=== PATIENT | male | born 1970 | race Caucasian/White ===

== ENCOUNTER 2016-11-29 14:31 | Inpatient (IN) | payer OTHER ==
[2016-11-29 16:10] VITALS: BMI 19.0
[2016-11-29] MEDS ORDERED: MAGNESIUM CITRATE 300 ML BOTTLE PO PRN (16:27)
[2016-11-29] MEDS ORDERED: NICOTINE POLACRILEX 2 MG GUM BC PRN (16:27)
[2016-11-29] MEDS ORDERED: MENTHOL/PHENOL 1 EACH UD MM PRN (16:27)
[2016-11-29] MEDS ORDERED: MAG HYDROX/AL HYDROX/SIMETH 30 ML UNIT-DOSE CUP PO PRN (16:27)
[2016-11-29] MEDS ORDERED: guaiFENesin/D-METHORPHAN HB 10 ML UNIT-DOSE CUPS PO PRN (16:27)
[2016-11-29] MEDS ORDERED: IBUPROFEN 400 MG TABLET (FP) PO PRN (16:27)
[2016-11-29] MEDS ORDERED: LOPERAMIDE HCL 2 MG CAPSULE PO PRN (16:27)
[2016-11-29] MEDS ORDERED: P-EPHED 60MG/TRIPROLIDI 2.5MG TABLET PO PRN (16:27)
[2016-11-29] MEDS ORDERED: ACETAMINOPHEN 325 MG TABLET (FP) PO PRN (16:27)
[2016-11-29] MEDS ORDERED: MAGNESIUM HYDROX 2400MG/30ML ORAL SUSPENSION 30 ML CUP PO PRN (16:27)
--- NOTE | 2016-11-29 16:46 | HP ---
Admission [facility] Chief Complaint: I need rehab to stop using drugs and continue OTP Allergies/Adverse Reactions: Allergies Allergy/AdvReac Type Severity Reaction Status Date / Time No Known Allergies Allergy Verified 11/29/16 16:27 History of Present Illness: 46 y/o man with a long hx. of drug dependence is admitted to rehab. Pt. is currently attending [facility] on methadone 40mg daily. Also attends [facility] for treatment of AIDS with HAART. Exam Limitations: No Limitations - Ebola screening Have you traveled outside of the country in the last 21 days: No Have you had contact with anyone from an Ebola affected area: No Have you been sick,other than usual withdrawal symptoms: No Do you have a fever: No - Review of Systems Constitutional: Diaphoresis EENT: reports: No Symptoms Reported Respiratory: reports: No Symptoms reported Cardiac: reports: No Symptoms Reported GI: reports: No Symptoms Reported : reports: No Symptoms Reported Musculoskeletal: reports: Back Pain, Joint Pain, Muscle Pain Integumentary: reports: No Symptoms Reported Neuro: reports: No Symptoms reported Endocrine: reports: No Symptoms Reported Hematology: reports: No Symptoms Reported Psychiatric: reports: No Sypmtoms Reported Other Systems: Reviewed and Negative Patient History - Patient Medical History Hx Anemia: No Hx Asthma: Yes Hx Chronic Obstructive Pulmonary Disease (COPD): No Hx Cancer: No Hx Cardiac Disorders: No Hx Congestive Heart Failure: No Hx Hypertension: No Hx Hypercholesterolemia: No Hx Pacemaker: No HX Cerebrovascular Accident: No Hx Seizures: No Hx Dementia: No Hx Diabetes: No Hx Gastrointestinal Disorders: No Hx Liver Disease: Yes Hx Genitourinary Disorders: No Hx Sexually Transmitted Disorders: No Hx Renal Disease (ESRD): No Hx Thyroid Disease: No Hx Human Immunodeficiency Virus (HIV): Yes (1994) Hx Hepatitis C: Yes (not yet treated) Hx Depression: Yes (Anxiety) Hx Suicide Attempt: No Hx Bipolar Disorder: No Hx Schizophrenia: No - Patient Surgical History Hx Cataract Extraction: Yes Hx Abdominal Surgery: Yes (rt. inguinal hernia repair) - PPD History Previous Implant?: Yes Documented Results: Negative w/o proof PPD to be Administered?: Yes - Smoking Cessation Smoking history: Current every day smoker Aproximately how many cigarettes per day: 10 Initiated information on smoking cessation: Yes 'Breaking Loose' booklet given: 11/29/16 - Substance & Tx. History Hx Alcohol Use: No Hx Substance Use: Yes Substance Use Type: Cocaine, Heroin, Marijuana Hx Substance Use Treatment: Yes ([facility]) - Substances Abused Cocaine Route: Injection Frequency: Daily Amount used: 1 bag Age of first use: 15 Date of Last Use: 11/28/16 Heroin Route: Injection Frequency: Daily Amount used: 2 bags Age of first use: 14 Date of Last Use: 11/28/16 Marijuana/Hashish Route: Oral Frequency: Daily Amount used: 20mg Date of Last Use: 11/29/16 Family Disease History - Family Disease History Family Disease History: Diabetes: Father, Mother, Brother Admission Physical Exam [facility] - Vital Signs Vital Signs: Vital Signs - 24 hr 11/29/16 16:09 Temperature 97 F L Pulse Rate 50 L Respiratory 20 Rate Blood Pressure 130/75 - Physical General Appearance: Yes: Within Normal Limits HEENTM: Yes: Within Normal Limits Respiratory: Yes: Chest Non-Tender, Wheezing (B/L expiratory) Neck: Yes: Supple Breast: Yes: Breast Exam Deferred Cardiology: Yes: Regular Rhythm, Regular Rate, S1, S2 Abdominal: Yes: Normal Bowel Sounds, Non Tender, Flat, Soft Genitourinary: Yes: Within Normal Limits Back: Yes: Within Normal Limits Musculoskeletal: Yes: Within Normal Limits Extremities: Yes: Within Normal Limits Neurological: Yes: Fully Oriented, Alert Integumentary: Yes: Diaphoresis Lymphatic: Yes: Within Normal Limits - Diagnostic (1) Cannabis dependence, uncomplicated Current Visit: Yes Status: Acute (2) Cocaine dependence, uncomplicated Current Visit: Yes Status: Acute (3) Opioid dependence on agonist therapy Current Visit: Yes Status: Acute (4) Asthma attack Current Visit: Yes Status: Acute Cleared for Admission [facility] - Detox or Rehab Claeared for Rehab Admission: Yes [facility] Breath Alcohol Content Breath Alcohol Content: 0 Urine Drug Screen - Results Drug Screen Negative: No Urine Drug Screen Results: THC-Marijuana, GARY-Cocaine, OPI-Opiates, MTD- Methadone
[2016-11-29] MEDS ORDERED: ALBUTEROL SO4 2.5/IPRATROPIUM 0.5 INH SOL 3 ML VIAL.NEB. NEB PRN (17:11)
[2016-11-29] MEDS ORDERED: ALBUTEROL SO4 6.7 GM HFA INHALER IH PRN (18:07)
[2016-11-29] MEDS ORDERED: predniSONE 20 MG TABLET (UD) PO ONE ×2 (18:30→21:45)
[2016-11-29 21:13] LABS: URINE APPEARANCE CLEAR; URINE BILIRUBIN NEGATIVE (NEGATIVE); URINE BLOOD NEGATIVE (NEGATIVE); URINE COLOR YELLOW; URINE GLUCOSE (UA) NEGATIVE (NEGATIVE); URINE KETONE NEGATIVE (NEGATIVE); URINE LEUK ESTERASE NEGATIVE (NEGATIVE); URINE NITRITE NEGATIVE (NEGATIVE); URINE PROTEIN NEGATIVE (NEGATIVE); URINE UROBILINOGEN 4.0 E.U/dl mg/dL (0.2-1.0)
[2016-11-29] MEDS ORDERED: TUBERCULIN PPD 5 TU/0.1ML VIAL ID ONE (21:20)
[2016-11-29] MEDS: ALBUTEROL SO4 2.5/IPRATROPIUM 0.5 INH SOL 3 ML VIAL.NEB. NEB SCH ×2 (21:21→22:00)
[2016-11-29] MEDS: THIAMINE HCL 100 MG TABLET (FP) PO SCH (21:23)
[2016-11-29] MEDS: SULFAMETHOXAZOLE/TRIMETHOPRIM 800MG/160MG D.S. TABLET PO SCH (21:24)
[2016-11-29] MEDS: NICOTINE 21 MG/24 HOURS TOPICAL PATCH TD SCH (21:26)
[2016-11-30] MEDS: DRONABINOL 2.5 MG CAPSULE PO SCH ×2 (06:36→17:31)
[2016-11-30] MEDS: ATAZANAVIR SO4 300 MG CAPSULE PO SCH (07:03)
[2016-11-30] MEDS: EMTRICITABINE 200MG/TENOFOVIR 300MG PO SCH (07:03)
[2016-11-30] MEDS: RITONAVIR 100 MG TABLET PO SCH (07:04)
[2016-11-30 09:59] LABS: MCH 29.2 pg (25.7-33.7); MCHC 32.8 g/dl (32.0-35.9); MEAN CELL VOLUME 88.8 fl (80-96); MEAN PLT VOLUME 9.9 fl (7.5-11.1); PLATELET COUNT 128 K/MM3 (134-434); RDW 13.2 % (11.9-15.9); WHITE BLOOD COUNT 3.8 K/mm3 (4.0-10.0)
[2016-11-30] MEDS ORDERED: predniSONE 10 MG TABLET (UD) PO ONE (10:00)
[2016-11-30] MEDS: METHADONE HCL 40 MG DISPERSABLE TABLET PO SCH (10:03)
[2016-11-30] MEDS: SULFAMETHOXAZOLE/TRIMETHOPRIM 800MG/160MG D.S. TABLET PO SCH ×2 (10:04→21:18)
[2016-11-30] MEDS: NICOTINE 21 MG/24 HOURS TOPICAL PATCH TD SCH (10:04)
[2016-11-30] MEDS: ALBUTEROL SO4 2.5/IPRATROPIUM 0.5 INH SOL 3 ML VIAL.NEB. NEB SCH ×4 (10:04→22:44)
[2016-11-30] MEDS: PRENATAL VITAMINS W/ FOLIC ACID TABLET (FP) PO SCH (10:04)
[2016-11-30 10:22] LABS: ALBUMIN 3.3 g/dl (3.4-5.0); ALK PHOS 86 U/L (45-117); ANION GAP 3 (8-16); BILIRUBIN,TOTAL 1.1 mg/dL (0.2-1.0); CALCIUM 9.1 mg/dL (8.5-10.1); CO2 31 mmol/L (21-32); CREATININE 0.8 mg/dL (0.7-1.3); GLUCOSE,RANDOM 155 mg/dL (74-106); SGOT/AST 22 U/L (15-37); SGPT/ALT 31 U/L (12-78); TOT PROT 8.3 g/dl (6.4-8.2)
--- NOTE | 2016-11-30 11:18 | HP ---
Psychiatrist Admission - Data Date of interview: 11/30/16 [facility] Identifying data: This is the first 5N inpatient rehabilitation admission for this 46 year old single unmeployed and domiciled male. Medical History: HIV+ since 89, Hep C, Asthma, Cataract Extraction, Rt. Inguinal Hernia Repair. Smokes cigaretets 1/2 PPD, on MMTP 40 mg daily. Psychiatric History: Patient reports history of depression, sees the psychiatrist at his methadone clinic, reports he is on seroquel unknown dose and ambien. No history of psychiatric hospitalizations and no history of suicdal attempts. Physical/Sexual Abuse/Trauma History: Denies history of sexual, physical and verbal abuse. Additional Comment: longest period of abstinence is 2 years. Vital Signs: Vital Signs - 24 hr 11/29/16 11/30/16 11/30/16 16:09 00:30 03:29 Temperature 97 F L Pulse Rate 50 L Respiratory 20 16 16 Rate Blood Pressure 130/75 11/30/16 06:37 Temperature 98.1 F Pulse Rate 59 L Respiratory 18 Rate Blood Pressure 122/71 Allergies/Adverse Reactions: Allergies Allergy/AdvReac Type Severity Reaction Status Date / Time No Known Allergies Allergy Verified 11/29/16 16:27 Date of last physical exam: 11/30/16 Concur with the findings of this exam: Yes - Substance Abuse/Tx History Hx Alcohol Use: No Hx Substance Use: Yes Substance Use Type: Cocaine (started at age of 22, daily use f 1 bag), Heroin ( 1 bag a day) Hx Substance Use Treatment: Yes - Admission Criteria Previous failed treatment: Yes Poor recovery environment: Yes Comorbidities: Yes Lacks judgement: Yes Mental Status Exam - Mental Status Exam Alert and Oriented to: Time, Place, Person Cognitive Function: Good Patient Appearance: Well Groomed Mood: Sad Affect: Appropriate, Mood Congruent Patient Behavior: Appropriate, Cooperative Speech Pattern: Clear, Appropriate Voice Loudness: Normal Thought Process: Intact, Goal Oriented Thought Disorder: Not Present Hallucinations: Denies Suicidal Ideation: Denies Homicidal Ideation: Denies Insight/Judgement: Fair Sleep: Poorly, Difficulty falling asleep Appetite: Weight loss, Weight gain Muscle strength/Tone: Normal Gait/Station: Normal Psychiatric Findings - Problem List ([place] 1, 2,3) (1) Opioid dependence on agonist therapy Current Visit: Yes Status: Acute (2) Cocaine dependence Current Visit: Yes Status: Acute (3) Mood disorder Current Visit: Yes Status: Acute - Initial Treatment Plan Initial Treatment Plan: will continue Seroquel 25 mg po hs, monitor progress as needed.
--- NOTE | 2016-11-30 15:38 | EKG ---
Test Reason : Blood Pressure : / mmHG Vent. Rate : 055 BPM Atrial Rate : 055 BPM P-R Int : 168 ms QRS Dur : 098 ms QT Int : 458 ms P-R-T Axes : 068 052 048 degrees QTc Int : 438 ms SINUS BRADYCARDIA WITH SINUS ARRHYTHMIA INCOMPLETE RIGHT BUNDLE BRANCH BLOCK BORDERLINE ECG NO PREVIOUS ECGS AVAILABLE Confirmed by AISHA ROACH, YOSEF ([id number]) on 11/30/2016 3:37:41 PM Referred By: Tejal Boyer Confirmed By:YOSEF LEONARD MD
[2016-11-30] MEDS: THIAMINE HCL 100 MG TABLET (FP) PO SCH (21:19)
[2016-11-30] MEDS: QUEtiapine FUMARATE 25 MG TABLET (FP) PO SCH (21:19)
[2016-12-01] MEDS: METHADONE HCL 40 MG DISPERSABLE TABLET PO SCH (06:40)
[2016-12-01] MEDS: DRONABINOL 2.5 MG CAPSULE PO SCH ×2 (06:40→16:48)
[2016-12-01] MEDS: ATAZANAVIR SO4 300 MG CAPSULE PO SCH (07:12)
[2016-12-01] MEDS: EMTRICITABINE 200MG/TENOFOVIR 300MG PO SCH (07:13)
[2016-12-01] MEDS: RITONAVIR 100 MG TABLET PO SCH (07:13)
[2016-12-01] MEDS: NICOTINE 21 MG/24 HOURS TOPICAL PATCH TD SCH (09:47)
[2016-12-01] MEDS: ALBUTEROL SO4 2.5/IPRATROPIUM 0.5 INH SOL 3 ML VIAL.NEB. NEB SCH ×4 (09:47→22:13)
[2016-12-01] MEDS: PRENATAL VITAMINS W/ FOLIC ACID TABLET (FP) PO SCH (09:47)
[2016-12-01] MEDS: predniSONE 20 MG TABLET (UD) PO SCH (09:47)
[2016-12-01] MEDS: SULFAMETHOXAZOLE/TRIMETHOPRIM 800MG/160MG D.S. TABLET PO SCH ×2 (09:47→21:25)
[2016-12-01] MEDS: diphenhydrAMINE HCL 50 MG CAPSULE PO PRN (21:25)
[2016-12-01] MEDS: QUEtiapine FUMARATE 25 MG TABLET (FP) PO SCH (21:25)
[2016-12-01] MEDS: THIAMINE HCL 100 MG TABLET (FP) PO SCH (21:25)
[2016-12-02] MEDS: DRONABINOL 2.5 MG CAPSULE PO SCH ×2 (06:21→17:46)
[2016-12-02] MEDS: METHADONE HCL 40 MG DISPERSABLE TABLET PO SCH (06:22)
[2016-12-02] MEDS: EMTRICITABINE 200MG/TENOFOVIR 300MG PO SCH (07:14)
[2016-12-02] MEDS: RITONAVIR 100 MG TABLET PO SCH (07:14)
[2016-12-02] MEDS: ATAZANAVIR SO4 300 MG CAPSULE PO SCH (07:14)
[2016-12-02] MEDS: SULFAMETHOXAZOLE/TRIMETHOPRIM 800MG/160MG D.S. TABLET PO SCH ×2 (09:52→21:28)
[2016-12-02] MEDS: PRENATAL VITAMINS W/ FOLIC ACID TABLET (FP) PO SCH (09:52)
[2016-12-02] MEDS: predniSONE 20 MG TABLET (UD) PO SCH (09:52)
[2016-12-02] MEDS: NICOTINE 21 MG/24 HOURS TOPICAL PATCH TD SCH (09:53)
[2016-12-02] MEDS: ALBUTEROL SO4 2.5/IPRATROPIUM 0.5 INH SOL 3 ML VIAL.NEB. NEB SCH ×4 (09:53→21:28)
[2016-12-02] MEDS: THIAMINE HCL 100 MG TABLET (FP) PO SCH (21:27)
[2016-12-02] MEDS: QUEtiapine FUMARATE 25 MG TABLET (FP) PO SCH (21:28)
[2016-12-03] MEDS: METHADONE HCL 40 MG DISPERSABLE TABLET PO SCH (06:47)
[2016-12-03] MEDS: DRONABINOL 2.5 MG CAPSULE PO SCH ×2 (06:48→16:51)
[2016-12-03] MEDS: RITONAVIR 100 MG TABLET PO SCH (07:25)
[2016-12-03] MEDS: EMTRICITABINE 200MG/TENOFOVIR 300MG PO SCH (07:25)
[2016-12-03] MEDS: ATAZANAVIR SO4 300 MG CAPSULE PO SCH (07:25)
[2016-12-03] MEDS: NICOTINE 21 MG/24 HOURS TOPICAL PATCH TD SCH (10:07)
[2016-12-03] MEDS: SULFAMETHOXAZOLE/TRIMETHOPRIM 800MG/160MG D.S. TABLET PO SCH ×2 (10:07→21:22)
[2016-12-03] MEDS: PRENATAL VITAMINS W/ FOLIC ACID TABLET (FP) PO SCH (10:07)
[2016-12-03] MEDS: predniSONE 10 MG TABLET (UD) PO SCH (10:08)
[2016-12-03] MEDS: ALBUTEROL SO4 2.5/IPRATROPIUM 0.5 INH SOL 3 ML VIAL.NEB. NEB SCH ×4 (10:08→21:24)
[2016-12-03] MEDS: THIAMINE HCL 100 MG TABLET (FP) PO SCH (21:22)
[2016-12-03] MEDS: QUEtiapine FUMARATE 25 MG TABLET (FP) PO SCH (21:22)
[2016-12-04] MEDS: DRONABINOL 2.5 MG CAPSULE PO SCH ×2 (06:34→16:52)
[2016-12-04] MEDS: METHADONE HCL 40 MG DISPERSABLE TABLET PO SCH (06:34)
[2016-12-04] MEDS: ATAZANAVIR SO4 300 MG CAPSULE PO SCH (07:09)
[2016-12-04] MEDS: EMTRICITABINE 200MG/TENOFOVIR 300MG PO SCH (07:09)
[2016-12-04] MEDS: RITONAVIR 100 MG TABLET PO SCH (07:09)
[2016-12-04] MEDS: ALBUTEROL SO4 2.5/IPRATROPIUM 0.5 INH SOL 3 ML VIAL.NEB. NEB SCH ×2 (10:16→21:32)
[2016-12-04] MEDS: SULFAMETHOXAZOLE/TRIMETHOPRIM 800MG/160MG D.S. TABLET PO SCH ×2 (10:16→21:33)
[2016-12-04] MEDS: predniSONE 10 MG TABLET (UD) PO SCH (10:16)
[2016-12-04] MEDS: NICOTINE 21 MG/24 HOURS TOPICAL PATCH TD SCH (10:17)
[2016-12-04] MEDS: PRENATAL VITAMINS W/ FOLIC ACID TABLET (FP) PO SCH (10:17)
[2016-12-04] MEDS: QUEtiapine FUMARATE 25 MG TABLET (FP) PO SCH (21:33)
[2016-12-04] MEDS: THIAMINE HCL 100 MG TABLET (FP) PO SCH (21:33)
[2016-12-05] MEDS: METHADONE HCL 40 MG DISPERSABLE TABLET PO SCH (06:41)
[2016-12-05] MEDS: DRONABINOL 2.5 MG CAPSULE PO SCH ×2 (06:41→16:45)
[2016-12-05] MEDS: EMTRICITABINE 200MG/TENOFOVIR 300MG PO SCH (07:48)
[2016-12-05] MEDS: ATAZANAVIR SO4 300 MG CAPSULE PO SCH (07:48)
[2016-12-05] MEDS: RITONAVIR 100 MG TABLET PO SCH (07:48)
[2016-12-05] MEDS: NICOTINE 21 MG/24 HOURS TOPICAL PATCH TD SCH (10:25)
[2016-12-05] MEDS: SULFAMETHOXAZOLE/TRIMETHOPRIM 800MG/160MG D.S. TABLET PO SCH ×2 (10:25→21:39)
[2016-12-05] MEDS: predniSONE 10 MG TABLET (UD) PO SCH (10:25)
[2016-12-05] MEDS: PRENATAL VITAMINS W/ FOLIC ACID TABLET (FP) PO SCH (10:25)
[2016-12-05] MEDS: THIAMINE HCL 100 MG TABLET (FP) PO SCH (21:38)
[2016-12-05] MEDS: diphenhydrAMINE HCL 50 MG CAPSULE PO PRN (21:39)
[2016-12-05] MEDS: QUEtiapine FUMARATE 25 MG TABLET (FP) PO SCH (21:39)
[2016-12-06] MEDS: METHADONE HCL 40 MG DISPERSABLE TABLET PO SCH (06:20)
[2016-12-06] MEDS: DRONABINOL 2.5 MG CAPSULE PO SCH ×2 (06:21→17:51)
[2016-12-06] MEDS: ATAZANAVIR SO4 300 MG CAPSULE PO SCH (07:05)
[2016-12-06] MEDS: RITONAVIR 100 MG TABLET PO SCH (07:05)
[2016-12-06] MEDS: EMTRICITABINE 200MG/TENOFOVIR 300MG PO SCH (07:05)
[2016-12-06] MEDS: predniSONE 10 MG TABLET (UD) PO SCH (10:10)
[2016-12-06] MEDS: SULFAMETHOXAZOLE/TRIMETHOPRIM 800MG/160MG D.S. TABLET PO SCH ×2 (10:10→21:33)
[2016-12-06] MEDS: PRENATAL VITAMINS W/ FOLIC ACID TABLET (FP) PO SCH (10:10)
[2016-12-06] MEDS: NICOTINE 21 MG/24 HOURS TOPICAL PATCH TD SCH (10:10)
[2016-12-06] MEDS: LIDOCAINE 5% TOPICAL PATCH TP SCH (12:55)
[2016-12-06] MEDS: LIDOCAINE PATCH REMOVAL MC SCH (21:33)
[2016-12-06] MEDS: THIAMINE HCL 100 MG TABLET (FP) PO SCH (21:33)
[2016-12-06] MEDS: QUEtiapine FUMARATE 25 MG TABLET (FP) PO SCH (21:33)
[2016-12-06] MEDS: diphenhydrAMINE HCL 50 MG CAPSULE PO PRN (21:34)
[2016-12-07] MEDS: METHADONE HCL 40 MG DISPERSABLE TABLET PO SCH (06:27)
[2016-12-07] MEDS: DRONABINOL 2.5 MG CAPSULE PO SCH ×2 (06:27→17:36)
[2016-12-07] MEDS: EMTRICITABINE 200MG/TENOFOVIR 300MG PO SCH (07:27)
[2016-12-07] MEDS: RITONAVIR 100 MG TABLET PO SCH (07:27)
[2016-12-07] MEDS: ATAZANAVIR SO4 300 MG CAPSULE PO SCH (07:27)
[2016-12-07] MEDS: NICOTINE 21 MG/24 HOURS TOPICAL PATCH TD SCH (10:14)
[2016-12-07] MEDS: predniSONE 5 MG TABLET (UD) PO SCH (10:14)
[2016-12-07] MEDS: SULFAMETHOXAZOLE/TRIMETHOPRIM 800MG/160MG D.S. TABLET PO SCH ×2 (10:14→21:32)
[2016-12-07] MEDS: PRENATAL VITAMINS W/ FOLIC ACID TABLET (FP) PO SCH (10:14)
[2016-12-07] MEDS: LIDOCAINE 5% TOPICAL PATCH TP SCH (10:15)
[2016-12-07] MEDS: THIAMINE HCL 100 MG TABLET (FP) PO SCH (21:32)
[2016-12-07] MEDS: QUEtiapine FUMARATE 25 MG TABLET (FP) PO SCH (21:32)
[2016-12-07] MEDS: LIDOCAINE PATCH REMOVAL MC SCH (21:33)
[2016-12-08] MEDS: DRONABINOL 2.5 MG CAPSULE PO SCH ×2 (06:50→16:45)
[2016-12-08] MEDS: ATAZANAVIR SO4 300 MG CAPSULE PO SCH (07:01)
[2016-12-08] MEDS: RITONAVIR 100 MG TABLET PO SCH (07:01)
[2016-12-08] MEDS: EMTRICITABINE 200MG/TENOFOVIR 300MG PO SCH (07:01)
[2016-12-08] MEDS: METHADONE HCL 40 MG DISPERSABLE TABLET PO SCH (07:15)
[2016-12-08] MEDS: LIDOCAINE 5% TOPICAL PATCH TP SCH (10:00)
[2016-12-08] MEDS: predniSONE 5 MG TABLET (UD) PO SCH (10:03)
[2016-12-08] MEDS: NICOTINE 21 MG/24 HOURS TOPICAL PATCH TD SCH (10:03)
[2016-12-08] MEDS: SULFAMETHOXAZOLE/TRIMETHOPRIM 800MG/160MG D.S. TABLET PO SCH ×2 (10:03→21:15)
[2016-12-08] MEDS: PRENATAL VITAMINS W/ FOLIC ACID TABLET (FP) PO SCH (10:03)
[2016-12-08] MEDS: THIAMINE HCL 100 MG TABLET (FP) PO SCH (21:15)
[2016-12-08] MEDS: QUEtiapine FUMARATE 25 MG TABLET (FP) PO SCH (21:15)
[2016-12-08] MEDS: LIDOCAINE PATCH REMOVAL MC SCH (21:16)
[2016-12-08] MEDS: diphenhydrAMINE HCL 50 MG CAPSULE PO PRN (21:16)
[2016-12-09] MEDS: METHADONE HCL 40 MG DISPERSABLE TABLET PO SCH (06:29)
[2016-12-09] MEDS: DRONABINOL 2.5 MG CAPSULE PO SCH ×2 (06:29→16:49)
[2016-12-09] MEDS: EMTRICITABINE 200MG/TENOFOVIR 300MG PO SCH (07:08)
[2016-12-09] MEDS: RITONAVIR 100 MG TABLET PO SCH (07:08)
[2016-12-09] MEDS: ATAZANAVIR SO4 300 MG CAPSULE PO SCH (07:08)
[2016-12-09] MEDS: PRENATAL VITAMINS W/ FOLIC ACID TABLET (FP) PO SCH (09:52)
[2016-12-09] MEDS: NICOTINE 21 MG/24 HOURS TOPICAL PATCH TD SCH (09:52)
[2016-12-09] MEDS: SULFAMETHOXAZOLE/TRIMETHOPRIM 800MG/160MG D.S. TABLET PO SCH ×2 (09:53→21:02)
[2016-12-09] MEDS: LIDOCAINE 5% TOPICAL PATCH TP SCH (09:54)
[2016-12-09] MEDS: THIAMINE HCL 100 MG TABLET (FP) PO SCH (21:02)
[2016-12-09] MEDS: QUEtiapine FUMARATE 25 MG TABLET (FP) PO SCH (21:02)
[2016-12-09] MEDS: LIDOCAINE PATCH REMOVAL MC SCH (21:02)
[2016-12-10] MEDS: DRONABINOL 2.5 MG CAPSULE PO SCH ×2 (06:15→16:44)
[2016-12-10] MEDS: METHADONE HCL 40 MG DISPERSABLE TABLET PO SCH (06:16)
[2016-12-10] MEDS: RITONAVIR 100 MG TABLET PO SCH (07:05)
[2016-12-10] MEDS: EMTRICITABINE 200MG/TENOFOVIR 300MG PO SCH (07:05)
[2016-12-10] MEDS: ATAZANAVIR SO4 300 MG CAPSULE PO SCH (07:05)
[2016-12-10] MEDS: PRENATAL VITAMINS W/ FOLIC ACID TABLET (FP) PO SCH (09:55)
[2016-12-10] MEDS: SULFAMETHOXAZOLE/TRIMETHOPRIM 800MG/160MG D.S. TABLET PO SCH ×2 (09:55→21:53)
[2016-12-10] MEDS: NICOTINE 21 MG/24 HOURS TOPICAL PATCH TD SCH (09:56)
[2016-12-10] MEDS: LIDOCAINE 5% TOPICAL PATCH TP SCH (09:56)
[2016-12-10] MEDS: QUEtiapine FUMARATE 25 MG TABLET (FP) PO SCH (21:53)
[2016-12-10] MEDS: THIAMINE HCL 100 MG TABLET (FP) PO SCH (21:53)
[2016-12-10] MEDS: LIDOCAINE PATCH REMOVAL MC SCH (21:54)
[2016-12-11] MEDS: METHADONE HCL 40 MG DISPERSABLE TABLET PO SCH (06:46)
[2016-12-11] MEDS: DRONABINOL 2.5 MG CAPSULE PO SCH ×2 (06:47→16:48)
[2016-12-11] MEDS: ATAZANAVIR SO4 300 MG CAPSULE PO SCH (07:14)
[2016-12-11] MEDS: EMTRICITABINE 200MG/TENOFOVIR 300MG PO SCH (07:15)
[2016-12-11] MEDS: RITONAVIR 100 MG TABLET PO SCH (07:15)
[2016-12-11] MEDS: SULFAMETHOXAZOLE/TRIMETHOPRIM 800MG/160MG D.S. TABLET PO SCH ×2 (09:45→21:42)
[2016-12-11] MEDS: PRENATAL VITAMINS W/ FOLIC ACID TABLET (FP) PO SCH (09:45)
[2016-12-11] MEDS: LIDOCAINE 5% TOPICAL PATCH TP SCH (09:46)
[2016-12-11] MEDS: NICOTINE 21 MG/24 HOURS TOPICAL PATCH TD SCH (09:46)
[2016-12-11] MEDS: diphenhydrAMINE HCL 50 MG CAPSULE PO PRN (21:42)
[2016-12-11] MEDS: QUEtiapine FUMARATE 25 MG TABLET (FP) PO SCH (21:42)
[2016-12-11] MEDS: THIAMINE HCL 100 MG TABLET (FP) PO SCH (21:42)
[2016-12-11] MEDS: LIDOCAINE PATCH REMOVAL MC SCH (21:51)
[2016-12-12] MEDS: METHADONE HCL 40 MG DISPERSABLE TABLET PO SCH (06:34)
[2016-12-12] MEDS: DRONABINOL 2.5 MG CAPSULE PO SCH ×3 (06:34→21:16)
[2016-12-12] MEDS: ATAZANAVIR SO4 300 MG CAPSULE PO SCH (07:01)
[2016-12-12] MEDS: EMTRICITABINE 200MG/TENOFOVIR 300MG PO SCH (07:01)
[2016-12-12] MEDS: RITONAVIR 100 MG TABLET PO SCH (07:01)
[2016-12-12] MEDS: SULFAMETHOXAZOLE/TRIMETHOPRIM 800MG/160MG D.S. TABLET PO SCH ×2 (10:00→21:16)
[2016-12-12] MEDS: NICOTINE 21 MG/24 HOURS TOPICAL PATCH TD SCH (10:00)
[2016-12-12] MEDS: PRENATAL VITAMINS W/ FOLIC ACID TABLET (FP) PO SCH (10:00)
[2016-12-12] MEDS: LIDOCAINE 5% TOPICAL PATCH TP SCH (10:01)
[2016-12-12] MEDS: QUEtiapine FUMARATE 25 MG TABLET (FP) PO SCH (21:16)
[2016-12-12] MEDS: THIAMINE HCL 100 MG TABLET (FP) PO SCH (21:16)
[2016-12-12] MEDS: LIDOCAINE PATCH REMOVAL MC SCH (21:17)
[2016-12-13] MEDS: ATAZANAVIR SO4 300 MG CAPSULE PO SCH (07:21)
[2016-12-13] MEDS: METHADONE HCL 40 MG DISPERSABLE TABLET PO SCH (07:21)
[2016-12-13] MEDS: DRONABINOL 2.5 MG CAPSULE PO SCH ×2 (07:21→16:43)
[2016-12-13] MEDS: EMTRICITABINE 200MG/TENOFOVIR 300MG PO SCH (07:22)
[2016-12-13] MEDS: RITONAVIR 100 MG TABLET PO SCH (07:22)
[2016-12-13] MEDS: SULFAMETHOXAZOLE/TRIMETHOPRIM 800MG/160MG D.S. TABLET PO SCH ×2 (09:48→21:21)
[2016-12-13] MEDS: PRENATAL VITAMINS W/ FOLIC ACID TABLET (FP) PO SCH (09:48)
[2016-12-13] MEDS: LIDOCAINE 5% TOPICAL PATCH TP SCH (09:48)
[2016-12-13] MEDS: NICOTINE 21 MG/24 HOURS TOPICAL PATCH TD SCH (09:49)
[2016-12-13] MEDS: THIAMINE HCL 100 MG TABLET (FP) PO SCH (21:20)
[2016-12-13] MEDS: LIDOCAINE PATCH REMOVAL MC SCH (21:21)
[2016-12-13] MEDS: QUEtiapine FUMARATE 25 MG TABLET (FP) PO SCH (21:21)
[2016-12-13] MEDS: diphenhydrAMINE HCL 50 MG CAPSULE PO PRN (21:21)
[2016-12-14] MEDS: DRONABINOL 2.5 MG CAPSULE PO SCH ×2 (06:11→16:37)
[2016-12-14] MEDS: METHADONE HCL 40 MG DISPERSABLE TABLET PO SCH (06:11)
[2016-12-14] MEDS: EMTRICITABINE 200MG/TENOFOVIR 300MG PO SCH (08:07)
[2016-12-14] MEDS: RITONAVIR 100 MG TABLET PO SCH (08:07)
[2016-12-14] MEDS: ATAZANAVIR SO4 300 MG CAPSULE PO SCH (08:07)
[2016-12-14] MEDS: LIDOCAINE 5% TOPICAL PATCH TP SCH (10:03)
[2016-12-14] MEDS: SULFAMETHOXAZOLE/TRIMETHOPRIM 800MG/160MG D.S. TABLET PO SCH ×2 (10:03→21:13)
[2016-12-14] MEDS: PRENATAL VITAMINS W/ FOLIC ACID TABLET (FP) PO SCH (10:03)
[2016-12-14] MEDS: NICOTINE 21 MG/24 HOURS TOPICAL PATCH TD SCH (10:04)
[2016-12-14] MEDS: QUEtiapine FUMARATE 25 MG TABLET (FP) PO SCH (21:13)
[2016-12-14] MEDS: THIAMINE HCL 100 MG TABLET (FP) PO SCH (21:13)
[2016-12-14] MEDS: LIDOCAINE PATCH REMOVAL MC SCH (21:14)
[2016-12-14] MEDS: diphenhydrAMINE HCL 50 MG CAPSULE PO PRN (21:50)
--- NOTE | 2016-12-14 22:58 | PN ---
[facility] Progress Note Note: 46 years old male tripped on ice cream guilherme observed patient ambulating on [address] steady gait, alert oriented x 3, denies pain reports right alvarenga on ground, right leg below the knee on the front outside part of the leg, skin intact, no redness, no swell, none tender, denies pain while walking or changing position from sitting to standing, hopping, to sitting , denies muscle tightness, reports flexibility as usual, negative posterior tibias pain or tenderness on palpation, + pedal pulse patient states that he is leaving tomorrow and looking forward aftercare program , agrees to follow up with his physician, utilize emergency facility if necessary.
[2016-12-15] MEDS ORDERED: METHADONE HCL 40 MG DISPERSABLE TABLET PO SCH (06:00)
[2016-12-15] MEDS: DRONABINOL 2.5 MG CAPSULE PO SCH (06:01)
[2016-12-15 07:03] VITALS: BP 117/75; PULSE 66; TEMP 97.5
[2016-12-15] MEDS: ATAZANAVIR SO4 300 MG CAPSULE PO SCH (07:43)
[2016-12-15] MEDS: RITONAVIR 100 MG TABLET PO SCH (07:43)
[2016-12-15] MEDS: EMTRICITABINE 200MG/TENOFOVIR 300MG PO SCH (07:43)
[2016-12-15] MEDS: NICOTINE 21 MG/24 HOURS TOPICAL PATCH TD SCH (09:41)
[2016-12-15] MEDS: SULFAMETHOXAZOLE/TRIMETHOPRIM 800MG/160MG D.S. TABLET PO SCH (09:42)
[2016-12-15] MEDS: LIDOCAINE 5% TOPICAL PATCH TP SCH (09:42)
[2016-12-15] MEDS: PRENATAL VITAMINS W/ FOLIC ACID TABLET (FP) PO SCH (09:42)
--- NOTE | 2016-12-15 10:24 | PN ---
Psychiatric Progress Note Vital Signs: Vital Signs Period Temp Pulse Resp BP Sys/Jackson Pulse Ox Last 24 Hr 97.5 F-98.6 F 66-86 16-18 112-117/70-75 Date of Session: 12/15/16 Chief Complaint:: discharge visit HPI: Patient has addressed cocaine, opioid, nicotine dependence comorbid Mood disorder. ROS: HIV+ since 89, Hep C, Asthma, Cataract Extraction, Rt. Inguinal Hernia Repair. Current Medications: Active Medications Generic Name Dose Route Start Last Admin Trade Name Freq PRN Reason Stop Dose Admin Acetaminophen 650 mg 11/29/16 16:27 Tylenol - PO Q4H PRN PAIN Al Hydroxide/Mg Hydroxide 30 ml 11/29/16 16:27 Mylanta Oral Suspension - PO Q6H PRN DYSPEPSIA Albuterol Sulfate 2 puff 11/29/16 18:07 Ventolin Hfa Inhaler - IH Q4H PRN SHORT OF BREATH/WHEEZING Atazanavir 300 mg 11/30/16 08:00 12/15/16 07:43 Reyataz - PO 300 mg DAILY@0800 DIANA Administration Diphenhydramine HCl 50 mg 11/29/16 16:27 12/14/16 21:50 Benadryl - PO 50 mg HSMR1 PRN Administration INSOMNIA Dronabinol 10 mg 12/12/16 20:15 12/15/16 06:01 Marinol - PO 10 mg BIDAC DIANA Administration Emtricitabine/Tenofovir 1 tab 11/30/16 08:00 12/15/16 07:43 Truvada PO 1 tab DAILY@0800 DIANA Administration Eucalyptus/Menthol/Phenol/Sorbitol 1 each 11/29/16 16:27 Cepastat Lozenge - MM Q4H PRN SORE THROAT Guaifenesin 10 ml 11/29/16 16:27 Robitussin Dm - PO Q6H PRN COUGH Ibuprofen 400 mg 11/29/16 16:27 Motrin - PO Q6H PRN SEVERE PAIN Lidocaine 1 patch 12/06/16 12:23 12/15/16 09:42 Lidoderm Patch - TP 1 patch DAILY DIANA Administration Loperamide HCl 4 mg 11/29/16 16:27 Imodium - PO Q6H PRN DIARRHEA Magnesium Citrate 300 ml 11/29/16 16:27 Citroma - PO Q48H PRN CONSTIPATION Magnesium Hydroxide 30 ml 11/29/16 16:27 Milk Of Magnesia - PO DAILY PRN CONSTIPATION Methadone HCl 40 mg 12/15/16 06:00 12/15/16 06:01 Dolophine - PO 40 mg DAILY@0600 DIANA Administration Miscellaneous 1 each 12/06/16 22:00 12/14/16 21:14 Lidoderm Patch Removal MC Not Given DAILY@2200 DIANA Nicotine 21 mg 11/29/16 18:15 12/15/16 09:41 Nicoderm Patch - TD 21 mg DAILY DIANA Administration Nicotine Polacrilex 2 mg 11/29/16 16:27 12/02/16 09:55 Nicorette Gum - BC 2 mg Q2H PRN Administration NICOTINE REPLACEMENT RX Multivit/Folic Acid/Iron 1 tab 11/30/16 10:00 12/15/16 09:42 Vitamins (Sjr) - PO 1 tab DAILY DIANA Administration Pseudoephedrine/Triprolidine 1 combo 11/29/16 16:27 Actifed - PO TID PRN NASAL CONGESTION Quetiapine Fumarate 25 mg 11/30/16 22:00 12/14/16 21:13 Seroquel - PO 25 mg HS DIANA Administration Ritonavir 100 mg 11/30/16 08:00 12/15/16 07:43 Norvir - PO 100 mg DAILY@0800 DIANA Administration Thiamine HCl 100 mg 11/29/16 22:00 12/14/16 21:13 Vitamin B1 - PO 100 mg HS DIANA Administration Trimethoprim/Sulfamethoxazole 1 each 11/29/16 22:00 12/15/16 09:42 Bactrim Ds - PO 1 each BID DIANA Administration Current Side Effect: No Lab tests ordered: No Lab tests reviewed: Yes Provider note:: Patient has completed this treatment and met his goals, will continue to address his issues at [facility]. He gained insights into his addiction and motivated to continue maintain abstinence.Patient explored healthy coping and social skills as well learned how to express self and communicate more effectively . Seroquel well tolerated, script provided for 30 days, he is stable for discharge today. Total face to face time:: 35 Mental Status Exam - Mental Status Exam Alert and Oriented to: Time, Place, Person Cognitive Function: Good Patient Appearance: Well Groomed Mood: Hopeful Affect: Appropriate, Mood Congruent Patient Behavior: Appropriate, Cooperative Speech Pattern: Clear, Appropriate Voice Loudness: Normal Thought Process: Intact, Goal Oriented Thought Disorder: Not Present Hallucinations: Denies Suicidal Ideation: Denies Homicidal Ideation: Denies Insight/Judgement: Fair Sleep: Fair Appetite: Fair Muscle strength/Tone: Normal Gait/Station: Normal Psychiatric Treatment Plan - Problem List (1) Opioid dependence on agonist therapy Current Visit: Yes (2) Cocaine dependence Current Visit: Yes (3) Mood disorder Current Visit: Yes
[2016-12-15] MEDS ORDERED: PT OWN MED DRAWER 7, Y5N ONE (11:10)
== END 2016-12-15 10:00 | disposition home or self-care (01) | DRG 772 ==
LOC: YASAS 14:31 → Y5N 17:28
PROVIDERS: ADMIT Psychiatry & Neurology Psychiatry; ATTEND Psychiatry & Neurology Psychiatry
PROC: HZ42ZZZ Group Counseling for Substance Abuse Treatment, Cognitive-Behavioral (ICD-10-PCS; principal; 2016-12-15)
DX: F11.20 Opioid dependence, uncomplicated (principal); F14.20 Cocaine dependence, uncomplicated; F39 Unspecified mood [affective] disorder; J45.901 Unspecified asthma with (acute) exacerbation
CPT/HCPCS: 36415; 80053; 81003; 82947; 85027; 86593; 93005; 93010; 94640

== ENCOUNTER 2020-01-08 17:09 | Inpatient (IN) | payer OTHER ==
--- NOTE | 2020-01-08 17:27 | BHS.RME ---
Substance Use & Tx History - Substance Use History Heroin Substance amount: 5 bags Frequency of use: Daily Substance route: Injection (ex: intravenous or skin popping) Date of Last Use: 01/08/20 - Last Treatment Date of last treatment: 11/29/2016-12/15/2016 Where was last treatment: Detox Physical/Psych/Mental Status - Behavior Eye Contact: Normal - Cooperativeness Cooperativeness: Cooperative - Thinking Thought Processes: Logical Thought content: Future oriented - Physical Health Problems Is patient presently having any pain?: Yes (generalized) Does patient presently have any injuries (include location): No Does patient currently have a fever: No COWS - Scale Resting Pulse: 1= [place] 81-100 Sweatin=Flushed/Facial Moisture Restless Observation: 0= Sits Still Pupil Size: 0= Normal to Room Light Bone or Joint Aches: 4=Acute Joint/Muscle Pain Runny Nose/ Eye Tearin= None GI Upset > 30mins: 3= Vomiting/Diarrhea (vomiting x 2, no diarrhea) Tremor Observation: 2= Slight Tremor Visible Yawning Observation: 0= None Anxiety or Irritability: 2=Irritable/Anxious Goose Flesh Skin: 0=Smooth Skin COWS Score: 14 Treatment Recommendation - Level of Care Level of Care: Opioid Treatment Program (OTP)
[2020-01-08 17:39] VITALS: BMI 17.4
--- NOTE | 2020-01-08 17:50 | HP ---
COWS - Scale Resting Pulse: 1= [place] 81-100 Sweatin=Flushed/Facial Moisture Restless Observation: 0= Sits Still Pupil Size: 0= Normal to Room Light Bone or Joint Aches: 4=Acute Joint/Muscle Pain Runny Nose/ Eye Tearin= None GI Upset > 30mins: 3= Vomiting/Diarrhea (vomiting x 2, no diarrhea) Tremor Observation: 2= Slight Tremor Visible Yawning Observation: 0= None Anxiety or Irritability: 2=Irritable/Anxious Goose Flesh Skin: 0=Smooth Skin COWS Score: 14 CIWA Score - Admission Criteria OASAS Guidelines: Admission for Medically Managed Detox: Requires at least one of the followin. CIWA greater than 12 2. Seizures within the past 24 hours 3. Delirium tremens within the past 24 hours 4. Hallucinations within the past 24 hours 5. Acute intervention needed for co occurring medical disorder 6. Acute intervention needed for co occurring psychiatric disorder 7. Severe withdrawal that cannot be handled at a lower level of care (continued vomiting, continued diarrhea, abnormal vital signs) requiring intravenous medication and/or fluids 8. Admitting History and Physical - Admission History of Present Illness: Patient is a 49 y.o. M PMHx of asthma, Hep C, HIV, R inguinal hernia repair presenting to [facility] for detox. Patient was examine din the room and is in no acute distress. Patient substance abuse consists of Heroin 5 bags a day, no overdoses and crack 20$ a day. History Source: Patient Limitations to Obtaining History: No Limitations - Past Medical History [employer] WORK[employer]: No: Seizure Cardiovascular: No: HTN, Hyperlipdemia Pulmonary: Yes: Asthma Gastrointestinal: No: GERD, GI Bleed Hepatobiliary: Yes: Hepatitis C Infectious Disease: Yes: HIV Psych: Yes: Anxiety, Depression - Past Surgical History Past Surgical History: Yes: Hernia Repair - Smoking History Smoking history: Current every day smoker Aproximately how many cigarettes per day: 10 - Alcohol/Substance Use Hx Alcohol Use: No History of Substance Use: reports: Cocaine, Heroin - Social History Usual Living Arrangement: Yes: Alone ADL: Independent Occupation: unemployed History of Recent Travel: No Admission ROS [facility] - HPI Allergies/Adverse Reactions: Allergies Allergy/AdvReac Type Severity Reaction Status Date / Time No Known Allergies Allergy Verified 11/29/16 16:27 Exam Limitations: No Limitations - Ebola screening Have you traveled outside of the country in the last 21 days: No Have you had contact with anyone from an Ebola affected area: No Have you been sick,other than usual withdrawal symptoms: No Do you have a fever: No - Review of Systems Constitutional: No Symptoms Reported Respiratory: reports: No Symptoms reported. denies: Cough, Shortness of Breath Cardiac: denies: Chest Pain, Lightheadedness GI: reports: Vomiting. denies: Constipated, Diarrhea, Nausea : denies: Burning, Dysuria Musculoskeletal: reports: Joint Pain, Muscle Pain Neuro: denies: Headache, Dizziness Hematology: denies: Easy Bleeding Psychiatric: reports: Judgement Intact, Mood/Affect Appropiate, Orientated x3, Depressed Patient History - Patient Medical History Hx Anemia: No Hx Asthma: Yes Hx Chronic Obstructive Pulmonary Disease (COPD): No Hx Cancer: No Hx Cardiac Disorders: No Hx Congestive Heart Failure: No Hx Hypertension: No Hx Hypercholesterolemia: No Hx Pacemaker: No HX Cerebrovascular Accident: No Hx Seizures: No Hx Dementia: No Hx Diabetes: No Hx Gastrointestinal Disorders: Yes Hx Liver Disease: Yes Hx Genitourinary Disorders: No Hx Sexually Transmitted Disorders: Yes Hx Renal Disease (ESRD): No Hx Thyroid Disease: No Hx Human Immunodeficiency Virus (HIV): Yes (1994) Hx Hepatitis C: Yes (not yet treated) Hx Depression: Yes Hx Suicide Attempt: No Hx Bipolar Disorder: No Hx Schizophrenia: No - Patient Surgical History Past Surgical History: Yes Hx Cataract Extraction: Yes Hx Abdominal Surgery: Yes (rt. inguinal hernia repair) - PPD History Date: 12/02/16 - Smoking Cessation Smoking history: Current every day smoker Aproximately how many cigarettes per day: 10 Initiated information on smoking cessation: Yes 'Breaking Loose' booklet given: 01/08/20 Admission Physical Exam [facility] - Vital Signs Vital Signs: Vital Signs - 24 hr 01/08/20 17:37 Temperature 97.7 F Pulse Rate 96 H Respiratory 18 Rate Blood Pressure 84/66 L - Physical General Appearance: Yes: Within Normal Limits, No Apparent Distress, Nourished, Appropriately Dressed Respiratory: Yes: Within Normal Limits, Lungs Clear, Normal Breath Sounds, No Respiratory Distress, No Accessory Muscle Use Cardiology: Yes: Within Normal Limits, Regular Rhythm, Regular Rate Abdominal: Yes: Within Normal Limits, Normal Bowel Sounds, Flat, Soft, Tender ness (RUQ). No: Hepatomegaly, Spleenomegaly Back: Yes: Within Normal Limits, Normal Inspection. No: CVA Tenderness Musculoskeletal: Yes: Within Normal Limits, Joint Stiffness Extremities: Yes: Within Normal Limits, Calf Tenderness. No: Non-Tender Neurological: Yes: Within Normal Limits, Fully Oriented, Alert, Normal Mood/Affect, Normal Response Integumentary: Yes: Within Normal Limits, Normal Color, Dry, Warm - Diagnostic (1) Heroin dependence Current Visit: Yes Status: Acute (2) Asthma Current Visit: Yes Status: Acute (3) Hepatitis C infection Current Visit: Yes Status: Acute (4) HIV (human immunodeficiency virus infection) Current Visit: Yes Status: Acute (5) Cocaine dependence Current Visit: No Status: Acute Cleared for Admission S - Detox or Rehab [facility] Level of Care: Medically Managed Detox Regimen/Protocol: Methadone Breathalyzer - Breathalyzer Breathalyzer: 0 Vital Signs - Vital Signs Vital signs refused: No Temperature: 97.7 F Pulse Rate: 96 Respiratory Rate: 18 Blood Pressure: 84/66 - Height Height: 1.75 m - Weight Weight: 53.524 kg - BMI Body Mass Index (BMI): 17.4 Urine Drug Screen - Test Device Lot number: [id number] Expiration date: 11/24/21 - Control Is test valid?: Yes - Results Drug screen NEGATIVE: No Urine drug screen results: GARY-Cocaine, MOP-Opiates Inpatient Rehab Admission - Rehab Decision to Admit Inpatient rehab admission?: No
[2020-01-08] MEDS ORDERED: cloNIDine HCL 0.1 MG TABLET PO PRN ×2 (17:57→17:59)
[2020-01-08] MEDS ORDERED: NICOTINE POLACRILEX 2 MG GUM BUC PRN (17:59)
[2020-01-08] MEDS ORDERED: IBUPROFEN 400 MG TABLET (FP) PO PRN (17:59)
[2020-01-08] MEDS ORDERED: MENTHOL/PHENOL 1 EACH UD MM PRN (17:59)
[2020-01-08] MEDS ORDERED: BISMUTH SUBSALICYLATE 524 MG/30 ML UD PO PRN (17:59)
[2020-01-08] MEDS ORDERED: METHOCARBAMOL 500 MG TABLET PO PRN (17:59)
[2020-01-08] MEDS ORDERED: ACETAMINOPHEN 325 MG TABLET (FP) PO PRN ×2 (17:59)
[2020-01-08] MEDS ORDERED: MAGNESIUM CITRATE 300 ML BOTTLE PO PRN (17:59)
[2020-01-08] MEDS ORDERED: ONDANSETRON *ODT* 4 MG TABLET SL PRN (17:59)
[2020-01-08] MEDS ORDERED: MAG HYDROX/AL HYDROX/SIMETH 30 ML UNIT-DOSE CUP PO PRN (17:59)
[2020-01-08] MEDS ORDERED: MAGNESIUM HYDROX 2400MG/30ML ORAL SUSPENSION 30 ML CUP PO PRN (17:59)
[2020-01-08] MEDS ORDERED: METHADONE HCL 10 MG TABLET (FOR DETOX USE ONLY) PO ONE (19:00)
[2020-01-08] MEDS: hydrOXYzine PAMOATE 25 MG CAPSULE (FP) PO SCH ×2 (19:23→22:10)
[2020-01-08] MEDS: THIAMINE HCL 100 MG TABLET (FP) PO SCH (22:10)
[2020-01-08] MEDS: MELATONIN 5 MG TABLETS PO SCH (22:10)
[2020-01-09] MEDS: hydrOXYzine PAMOATE 25 MG CAPSULE (FP) PO SCH ×5 (07:57→22:13)
[2020-01-09] MEDS ORDERED: METHADONE HCL 10 MG TABLET (FOR DETOX USE ONLY) ONE (09:24)
[2020-01-09] MEDS ORDERED: METHADONE HCL 5 MG TABLET (FOR DETOX USE ONLY) ONE (09:25)
[2020-01-09] MEDS ORDERED: METHADONE (DETOX) 20 MG, METHADONE (DETOX) 5 MG PO ONE (10:00)
[2020-01-09] MEDS: PRENATAL VITAMINS W/ FOLIC ACID TABLET (FP) PO SCH (10:10)
[2020-01-09] MEDS: NICOTINE 7 MG/24 HOURS TOPICAL PATCH TD SCH (10:13)
[2020-01-09 10:40] LABS: HEMATOCRIT 40.5 % (35.4-49); HEMOGLOBIN 13.2 GM/dL (11.7-16.9); MCH 29.7 pg (25.7-33.7); MCHC 32.5 g/dl (32.0-35.9); MEAN CELL VOLUME 91.2 fl (80-96); MEAN PLT VOLUME 9.5 fl (7.5-11.1); PLATELET COUNT 183 K/MM3 (134-434); RBC 4.44 M/mm3 (4.00-5.60); RDW 15.6 % (11.9-15.9); WHITE BLOOD COUNT 4.5 K/mm3 (4.0-10.0)
[2020-01-09 10:51] LABS: ALBUMIN 4.1 g/dl (3.4-5.0); BLOOD UREA NITROGEN 21.2 mg/dL (7-18); CALCIUM 9.6 mg/dL (8.5-10.1); CREATININE 0.8 mg/dL (0.55-1.3); TOT PROT 8.8 g/dl (6.4-8.2)
--- NOTE | 2020-01-09 11:50 | CONSULT ---
[facility] Psychiatric Consult - Data Date of interview: 01/09/20 Admission source: [facility] Identifying data: Revisit to [facility] and admission to [address] [place] [address] for this 49 y/o Hispanoc male self-referred for detoxification treatment. AIDA issues : heroin, cocaine, nicotine. Patient is single, no dependents, domiciled, unemployed and supported on [employer] funds. Substance Abuse History: Smoking history: Current every day smoker. Approximately how many cigarettes per day: 10. Alcohol/Substance Use. Hx Alcohol Use: No. History of Substance Use: reports: Cocaine, Heroin. History of multiple AIDA treatment failures. Medical History: Medical profile is remarkable for HIV infection since 1994 (on ART medications), bronchial asthma, hepatitis C, cachexia and history of right inguinal herniorraphy. No known allergies. Psychiatric History: Patient denies history of psychiatric hospitalizations. He does, however, indicate that he has had prior contacts with psychiatrists for " depression and anxiety " for which he used to be given xanax, klonopin and seroquel. Mr Kay states that his current primary care provider has been prescribing seroquel + antiretroviral medications ([facility]). Patient denies history of suicide attempts. Physical/Sexual Abuse/Trauma History: Patient denies. Additional Comment: Urine drug screen results: GARY-Cocaine, MOP-Opiates. Noted. Mental Status Exam - Mental Status Exam Alert and Oriented to: Time, Place Cognitive Function: Good Patient Appearance: Well Groomed (cachectic frame; tattoos on both upper extremities) Mood: Withdrawn, Irritable Affect: Mood Congruent, Constricted Patient Behavior: Fatigued, Appropriate, Cooperative Speech Pattern: Clear, Appropriate Voice Loudness: Normal Thought Process: Intact, Goal Oriented Thought Disorder: Not Present Hallucinations: Denies Suicidal Ideation: Denies Homicidal Ideation: Denies Insight/Judgement: Poor Sleep: Poorly, Difficulty falling asleep Appetite: Poor, Weight loss Gait/Station: Normal Psychiatric Findings - Problem List ([place] 1, 2,3) (1) Heroin dependence Current Visit: Yes Status: Chronic (2) Cocaine dependence Current Visit: Yes Status: Chronic (3) Substance induced mood disorder Current Visit: Yes Status: Chronic (4) Insomnia Current Visit: Yes Status: Chronic - Initial Treatment Plan Initial Treatment Plan: Psychoeducation. Sleep hygiene. Support. Detoxification in progress. Seroquel 25 mg po hs. Resumed (with patient's consent). Side effects/benefits discussed with patient. Observation.
--- NOTE | 2020-01-09 12:44 | EKG ---
Test Reason : Blood Pressure : / mmHG Vent. Rate : 059 BPM Atrial Rate : 059 BPM P-R Int : 158 ms QRS Dur : 088 ms QT Int : 432 ms P-R-T Axes : 068 011 046 degrees QTc Int : 427 ms SINUS BRADYCARDIA WHEN COMPARED WITH ECG OF 29-NOV-2016 22:01, NO SIGNIFICANT CHANGE WAS FOUND Confirmed by ONEAL LARIOS MD ([id number]) on 01/09/2020 12:43:36 PM Referred By: DR GARCIA Confirmed By:ONEAL LARIOS MD
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
[2020-01-09] MEDS: QUEtiapine FUMARATE 25 MG TABLET PO SCH (22:13)
[2020-01-09] MEDS: THIAMINE HCL 100 MG TABLET (FP) PO SCH (22:13)
[2020-01-09] MEDS: MELATONIN 5 MG TABLETS PO SCH (22:13)
[2020-01-10] MEDS: hydrOXYzine PAMOATE 25 MG CAPSULE (FP) PO SCH ×7 (07:16→23:22)
--- NOTE | 2020-01-10 09:58 | PN ---
BHS COWS - Scale Resting Pulse: 0= [place] 80 or Below Sweatin= Chills/Flushing Restless Observation: 1= Difficult to Sit Still Pupil Size: 0= Normal to Room Light Bone or Joint Aches: 2= Severe Diffuse Aches Runny Nose/ Eye Tearin= None GI Upset > 30mins: 0= None Tremor Observation of Outstretched Hands: 0= None Yawning Observation: 2= >3x During Session Anxiety or Irritability: 2=Irritable/Anxious Goose Flesh Skin: 0=Smooth Skin COWS Score: 8 BHS Progress Note (SOAP) Subjective: c/o body aches, anxiety, chills, headache, and irritability. Objective: 01/10/20 09:57 Vital Signs 01/10/20 01/10/20 06:24 08:56 Temperature 97.1 F L 97.8 F Pulse Rate 80 77 Respiratory 16 18 Rate Blood Pressure 150/90 128/85 O2 Sat by Pulse 99 Oximetry (%) Laboratory Last Values WBC 4.5 K/mm3 (4.0-10.0) 01/09/20 08:00 RBC 4.44 M/mm3 (4.00-5.60) 01/09/20 08:00 Hgb 13.2 GM/dL (11.7-16.9) 01/09/20 08:00 Hct 40.5 % (35.4-49) 01/09/20 08:00 MCV 91.2 fl (80-96) 01/09/20 08:00 MCH 29.7 pg (25.7-33.7) 01/09/20 08:00 MCHC 32.5 g/dl (32.0-35.9) 01/09/20 08:00 RDW 15.6 % (11.9-15.9) D 01/09/20 08:00 Plt Count 183 K/MM3 (134-434) D 01/09/20 08:00 MPV 9.5 fl (7.5-11.1) 01/09/20 08:00 Sodium 140 mmol/L (136-145) 01/09/20 08:00 Potassium 5.0 mmol/L (3.5-5.1) 01/09/20 08:00 Chloride 106 mmol/L (98-107) 01/09/20 08:00 Carbon Dioxide 29 mmol/L (21-32) 01/09/20 08:00 Anion Gap 5 MMOL/L (8-16) L 01/09/20 08:00 BUN 21.2 mg/dL (7-18) H 01/09/20 08:00 Creatinine 0.8 mg/dL (0.55-1.3) 01/09/20 08:00 Est GFR (CKD-EPI)AfAm 121.57 01/09/20 08:00 Est GFR (CKD-EPI)NonAf 104.89 01/09/20 08:00 Random Glucose 134 mg/dL (74-106) H 01/09/20 08:00 Fasting Glucose 82 mg/dL (74-106) 01/10/20 07:45 Calcium 9.6 mg/dL (8.5-10.1) 01/09/20 08:00 Total Bilirubin 1.0 mg/dL (0.2-1) 01/09/20 08:00 AST 18 U/L (15-37) 01/09/20 08:00 ALT 25 U/L (13-61) 01/09/20 08:00 Alkaline Phosphatase 75 U/L (45-117) 01/09/20 08:00 Total Protein 8.8 g/dl (6.4-8.2) H 01/09/20 08:00 Albumin 4.1 g/dl (3.4-5.0) 01/09/20 08:00 Syphilis Serology Non-reactive (NONREACTIVE) 01/09/20 08:00 COVID-19 (RAMIRO) Not detected (Not Detected) 01/08/20 18:40 Labs noted. Assessment: 01/10/20 09:57 AOX3, in no acute respiratory distress. Full ROM, ambulating in the unit. Withdrawal symptoms. Plan: continue detox.
[2020-01-10] MEDS ORDERED: METHADONE HCL 10 MG TABLET (FOR DETOX USE ONLY) PO ONE (10:00)
[2020-01-10] MEDS: NICOTINE 7 MG/24 HOURS TOPICAL PATCH TD SCH (10:15)
[2020-01-10] MEDS: PRENATAL VITAMINS W/ FOLIC ACID TABLET (FP) PO SCH (10:15)
[2020-01-10] MEDS: MELATONIN 5 MG TABLETS PO SCH ×2 (22:13→23:21)
[2020-01-10] MEDS: THIAMINE HCL 100 MG TABLET (FP) PO SCH ×2 (22:13→23:21)
[2020-01-10] MEDS: QUEtiapine FUMARATE 25 MG TABLET PO SCH ×2 (22:13→23:21)
[2020-01-11] MEDS: hydrOXYzine PAMOATE 25 MG CAPSULE (FP) PO SCH ×5 (06:27→22:21)
[2020-01-11] MEDS ORDERED: METHADONE HCL 5 MG TABLET (FOR DETOX USE ONLY) ONE (08:37)
[2020-01-11] MEDS ORDERED: METHADONE HCL 10 MG TABLET (FOR DETOX USE ONLY) ONE (08:37)
[2020-01-11] MEDS ORDERED: METHADONE (DETOX) 10 MG, METHADONE (DETOX) 5 MG PO ONE (10:00)
[2020-01-11] MEDS: PRENATAL VITAMINS W/ FOLIC ACID TABLET (FP) PO SCH (10:12)
[2020-01-11] MEDS: NICOTINE 7 MG/24 HOURS TOPICAL PATCH TD SCH (10:14)
--- NOTE | 2020-01-11 11:41 | PN ---
BHS COWS - Scale Resting Pulse: 1= [place] 81-100 Sweatin= No chills or Flushing Restless Observation: 0= Sits Still Pupil Size: 1= Pupils >than Normal Bone or Joint Aches: 1= Mild Discomfort Runny Nose/ Eye Tearin= None GI Upset > 30mins: 1= Stomach Cramp Tremor Observation of Outstretched Hands: 1= Tremor [place], Not Seen Yawning Observation: 0= None Anxiety or Irritability: 1=Feels Anxious/Irritable Goose Flesh Skin: 0=Smooth Skin COWS Score: 6 BHS Progress Note (SOAP) Subjective: 49 years old male was admitted on 01/08/20 for opiate withdrawal sx management treating with methadone detox regiment mr aponte requests to resume hiv medication that last dose was "a month" ago encourage mr aponte return to infectious disease specialist for continuity of care ambulating with cane slow steady Objective: 01/11/20 11:40 Vital Signs - 24 hr 01/10/20 01/10/20 01/10/20 12:47 16:36 20:46 Temperature 96.9 F L 98.4 F 97.7 F Pulse Rate 65 74 77 Respiratory 18 18 16 Rate Blood Pressure 90/57 L 98/72 94/67 O2 Sat by Pulse 100 99 Oximetry (%) 01/11/20 01/11/20 06:11 08:38 Temperature 97.3 F L 97.3 F L Pulse Rate 68 88 Respiratory 16 18 Rate Blood Pressure 98/65 110/74 O2 Sat by Pulse 100 Oximetry (%) Laboratory Tests 01/08/20 01/09/20 01/09/20 18:40 08:00 08:00 WBC 4.5 RBC 4.44 Hgb 13.2 Hct 40.5 MCV 91.2 MCH 29.7 MCHC 32.5 RDW 15.6 D Plt Count 183 D MPV 9.5 Sodium Potassium Chloride Carbon Dioxide Anion Gap BUN Creatinine Est GFR (CKD-EPI)AfAm Est GFR (CKD-EPI)NonAf Random Glucose Fasting Glucose Calcium Total Bilirubin AST ALT Alkaline Phosphatase Total Protein Albumin Syphilis Serology Non-reactive COVID-19 (RAMIRO) Not detected 01/09/20 01/10/20 08:00 07:45 WBC RBC Hgb Hct MCV MCH MCHC RDW Plt Count MPV Sodium 140 Potassium 5.0 Chloride 106 Carbon Dioxide 29 Anion Gap 5 L BUN 21.2 H Creatinine 0.8 Est GFR (CKD-EPI)AfAm 121.57 Est GFR (CKD-EPI)NonAf 104.89 Random Glucose 134 H Fasting Glucose 82 Calcium 9.6 Total Bilirubin 1.0 AST 18 ALT 25 Alkaline Phosphatase 75 Total Protein 8.8 H Albumin 4.1 Syphilis Serology COVID-19 (RAMIRO) bun elevation encourage oral hydration Assessment: 01/11/20 11:40 opiate withdrawal Plan: methadone regiment
[2020-01-11] MEDS: THIAMINE HCL 100 MG TABLET (FP) PO SCH (22:21)
[2020-01-11] MEDS: MELATONIN 5 MG TABLETS PO SCH (22:21)
[2020-01-11] MEDS: QUEtiapine FUMARATE 25 MG TABLET PO SCH (22:21)
[2020-01-12] MEDS: hydrOXYzine PAMOATE 25 MG CAPSULE (FP) PO SCH ×5 (08:16→22:37)
--- NOTE | 2020-01-12 08:27 | PN ---
Teaching Attending Note Name of Resident: Flaquito Andrews ATTENDING PHYSICIAN STATEMENT I saw and evaluated the patient. I reviewed the resident's note and discussed the case with the resident. I agree with the resident's findings and plan as documented. SUBJECTIVE: OBJECTIVE: ASSESSMENT AND PLAN: Agree with resident's findings and plan for detox.
--- NOTE | 2020-01-12 09:13 | PN ---
BHS COWS - Scale Resting Pulse: 0= [place] 80 or Below Sweatin= No chills or Flushing Restless Observation: 0= Sits Still Pupil Size: 0= Normal to Room Light Bone or Joint Aches: 1= Mild Discomfort Runny Nose/ Eye Tearin= None GI Upset > 30mins: 1= Stomach Cramp Tremor Observation of Outstretched Hands: 1= Tremor [place], Not Seen Yawning Observation: 0= None Anxiety or Irritability: 1=Feels Anxious/Irritable Goose Flesh Skin: 0=Smooth Skin COWS Score: 4 BHS Progress Note (SOAP) Subjective: 49 years old male was admitted on 01/08/20 for opiate withdrawal sx management treating with methadone detox regiment mr aponte ambulates with cane slow and steady ate breakfast tolerated food well feels better today discussing aftercare with staff mr aponte prefers to go [facility] for opiate abuse treatment encourage to moss picker narcan from pharmacy upon discharge from pharmacy Objective: 01/12/20 09:17 Vital Signs - 24 hr 01/11/20 01/11/20 01/11/20 12:36 16:44 20:26 Temperature 97.0 F L 98.3 F 97.3 F L Pulse Rate 72 74 70 Respiratory 18 16 18 Rate Blood Pressure 108/63 112/71 107/73 O2 Sat by Pulse 100 99 Oximetry (%) 01/12/20 05:23 Temperature 97.1 F L Pulse Rate 70 Respiratory 16 Rate Blood Pressure 100/64 O2 Sat by Pulse 100 Oximetry (%) Laboratory Tests 01/08/20 01/09/20 01/09/20 18:40 08:00 08:00 WBC 4.5 RBC 4.44 Hgb 13.2 Hct 40.5 MCV 91.2 MCH 29.7 MCHC 32.5 RDW 15.6 D Plt Count 183 D MPV 9.5 Sodium Potassium Chloride Carbon Dioxide Anion Gap BUN Creatinine Est GFR (CKD-EPI)AfAm Est GFR (CKD-EPI)NonAf Random Glucose Fasting Glucose Calcium Total Bilirubin AST ALT Alkaline Phosphatase Total Protein Albumin Syphilis Serology Non-reactive COVID-19 (RAMIRO) Not detected 01/09/20 01/10/20 08:00 07:45 WBC RBC Hgb Hct MCV MCH MCHC RDW Plt Count MPV Sodium 140 Potassium 5.0 Chloride 106 Carbon Dioxide 29 Anion Gap 5 L BUN 21.2 H Creatinine 0.8 Est GFR (CKD-EPI)AfAm 121.57 Est GFR (CKD-EPI)NonAf 104.89 Random Glucose 134 H Fasting Glucose 82 Calcium 9.6 Total Bilirubin 1.0 AST 18 ALT 25 Alkaline Phosphatase 75 Total Protein 8.8 H Albumin 4.1 Syphilis Serology COVID-19 (RAMIRO) lab noted Assessment: 01/12/20 09:18 opiate withdrawal Plan: methadone regiment
[2020-01-12] MEDS ORDERED: METHADONE HCL 10 MG TABLET (FOR DETOX USE ONLY) PO ONE (10:00)
[2020-01-12] MEDS: NICOTINE 7 MG/24 HOURS TOPICAL PATCH TD SCH (11:38)
[2020-01-12] MEDS: PRENATAL VITAMINS W/ FOLIC ACID TABLET (FP) PO SCH (11:38)
[2020-01-12] MEDS: QUEtiapine FUMARATE 25 MG TABLET PO SCH (22:36)
[2020-01-12] MEDS: MELATONIN 5 MG TABLETS PO SCH (22:36)
[2020-01-12] MEDS: THIAMINE HCL 100 MG TABLET (FP) PO SCH (22:37)
[2020-01-13] MEDS: hydrOXYzine PAMOATE 25 MG CAPSULE (FP) PO SCH ×2 (05:26→10:02)
[2020-01-13] MEDS ORDERED: METHADONE HCL 5 MG TABLET (FOR DETOX USE ONLY) PO ONE (06:00)
[2020-01-13 06:30] VITALS: BP 125/83; PULSE 80; TEMP 97.3
--- NOTE | 2020-01-13 09:37 | PN ---
BHS COWS - Scale Resting Pulse: 0= [place] 80 or Below Sweatin= No chills or Flushing Restless Observation: 0= Sits Still Pupil Size: 0= Normal to Room Light Bone or Joint Aches: 0= None Runny Nose/ Eye Tearin= None GI Upset > 30mins: 0= None Tremor Observation of Outstretched Hands: 0= None Yawning Observation: 0= None Anxiety or Irritability: 1=Feels Anxious/Irritable Goose Flesh Skin: 0=Smooth Skin COWS Score: 1 BHS Progress Note (SOAP) Subjective: alert,no complaint Objective: 01/13/20 11:13 Vital Signs Temperature 97.3 F L 01/13/20 06:29 Pulse Rate 80 01/13/20 06:29 Respiratory Rate 18 01/13/20 06:29 Blood Pressure 125/83 01/13/20 06:29 O2 Sat by Pulse Oximetry (%) 99 01/13/20 06:29 Assessment: 01/13/20 11:13 detox completed,no withdrawal symptom Plan: stable for discharge today,follow up with after care program as arrangement
--- NOTE | 2020-01-13 09:37 | DS ---
[facility] Detox Discharge Summary Admission Date: 01/08/20 Discharge Date: 01/13/20 - History Present History: Cocaine Dependence, Opioid Dependence Additional Comments: alert,oriented x 3 ambulation on the unit with cane lung clear on auscultation bilaterally abdomen soft,no distension,no pain no edema of legs stable for discharge follow up with after care program at [facility] and his own medical provider or [facility] out patient left the unit in stable condition total time spending on discharge 35 minutes Pertinent Past History: asthma hiv hepatitis c insomnia - Physical Exam Results Vital Signs: Vital Signs Temperature 97.3 F L 01/13/20 06:29 Pulse Rate 80 01/13/20 06:29 Respiratory Rate 18 01/13/20 06:29 Blood Pressure 125/83 01/13/20 06:29 O2 Sat by Pulse Oximetry (%) 99 01/13/20 06:29 Pertinent Admission Physical Exam Findings: withdrawal signs and symptom Laboratory Last Values WBC 4.5 K/mm3 (4.0-10.0) 01/09/20 08:00 RBC 4.44 M/mm3 (4.00-5.60) 01/09/20 08:00 Hgb 13.2 GM/dL (11.7-16.9) 01/09/20 08:00 Hct 40.5 % (35.4-49) 01/09/20 08:00 MCV 91.2 fl (80-96) 01/09/20 08:00 MCH 29.7 pg (25.7-33.7) 01/09/20 08:00 MCHC 32.5 g/dl (32.0-35.9) 01/09/20 08:00 RDW 15.6 % (11.9-15.9) D 01/09/20 08:00 Plt Count 183 K/MM3 (134-434) D 01/09/20 08:00 MPV 9.5 fl (7.5-11.1) 01/09/20 08:00 Sodium 140 mmol/L (136-145) 01/09/20 08:00 Potassium 5.0 mmol/L (3.5-5.1) 01/09/20 08:00 Chloride 106 mmol/L (98-107) 01/09/20 08:00 Carbon Dioxide 29 mmol/L (21-32) 01/09/20 08:00 Anion Gap 5 MMOL/L (8-16) L 01/09/20 08:00 BUN 21.2 mg/dL (7-18) H 01/09/20 08:00 Creatinine 0.8 mg/dL (0.55-1.3) 01/09/20 08:00 Est GFR (CKD-EPI)AfAm 121.57 01/09/20 08:00 Est GFR (CKD-EPI)NonAf 104.89 01/09/20 08:00 Random Glucose 134 mg/dL (74-106) H 01/09/20 08:00 Fasting Glucose 82 mg/dL (74-106) 01/10/20 07:45 Calcium 9.6 mg/dL (8.5-10.1) 01/09/20 08:00 Total Bilirubin 1.0 mg/dL (0.2-1) 01/09/20 08:00 AST 18 U/L (15-37) 01/09/20 08:00 ALT 25 U/L (13-61) 01/09/20 08:00 Alkaline Phosphatase 75 U/L (45-117) 01/09/20 08:00 Total Protein 8.8 g/dl (6.4-8.2) H 01/09/20 08:00 Albumin 4.1 g/dl (3.4-5.0) 01/09/20 08:00 Syphilis Serology Non-reactive (NONREACTIVE) 01/09/20 08:00 COVID-19 (RAMIRO) Not detected (Not Detected) 01/08/20 18:40 Vital Signs Temperature 97.3 F L 01/13/20 06:29 Pulse Rate 80 01/13/20 06:29 Respiratory Rate 18 01/13/20 06:29 Blood Pressure 125/83 01/13/20 06:29 O2 Sat by Pulse Oximetry (%) 99 01/13/20 06:29 - Treatment Hospital Course: Detox Protocol Followed, Detoxed Safely, Responded well, Discharged Condition Good Patient has Accepted a Rehab Referral to: declined - Medication Discharge Medications: Ambulatory Orders Quetiapine Fumarate [Seroquel -] 25 mg PO HS #30 tablet 12/15/16 Elviteg/Cob/Emtri/Tenof Alafen [Genvoya Tablet] 1 tablet PO DAILY 01/08/20 Naloxone HCl [Narcan] 4 mg NS ASDIR PRN #1 spray 01/12/20 - Diagnosis (1) Heroin dependence Current Visit: Yes Status: Chronic (2) HIV (human immunodeficiency virus infection) Current Visit: Yes Status: Acute (3) Hepatitis C infection Current Visit: Yes Status: Acute (4) Cocaine dependence Current Visit: Yes Status: Chronic (5) Insomnia Current Visit: Yes Status: Acute (6) Non compliance w medication regimen Current Visit: Yes Status: Acute (7) Ambulates with cane Current Visit: Yes Status: Acute - AMA Did Patient Leave Against Medical Advice: No
[2020-01-13] MEDS: PRENATAL VITAMINS W/ FOLIC ACID TABLET (FP) PO SCH (10:02)
[2020-01-13] MEDS: NICOTINE 7 MG/24 HOURS TOPICAL PATCH TD SCH (10:02)
== END 2020-01-13 08:59 | disposition home or self-care (01) | DRG 773 ==
LOC: YASAS 17:09 → Y3N 18:21
PROVIDERS: ADMIT Allergy & Immunology; ATTEND Allergy & Immunology
PROC: HZ2ZZZZ Detoxification Services for Substance Abuse Treatment (ICD-10-PCS; principal; 2020-01-08)
DX: F11.23 Opioid dependence with withdrawal (principal); F14.20 Cocaine dependence, uncomplicated; F17.210 Nicotine dependence, cigarettes, uncomplicated; F19.24 Other psychoactive substance dependence with psychoactive substance-induced mood disorder; Z21 Asymptomatic human immunodeficiency virus [HIV] infection status; G47.00 Insomnia, unspecified; J45.909 Unspecified asthma, uncomplicated; B18.2 Chronic viral hepatitis C; Z98.890 Other specified postprocedural states; Z99.89 Dependence on other enabling machines and devices; Z91.14 Patient's other noncompliance with medication regimen; Z56.0 Unemployment, unspecified
CPT/HCPCS: 36415; 80053; 82947; 85027; 86780; 93005; 93010; U0003